=== PATIENT | female | born 1985 | race Caucasian/White ===

== ENCOUNTER 2016-09-02 08:49 | Inpatient (IN) | payer OTHER ==
[2016-09-02] VITALS (7 sets, daily range): BP systolic 98–116; BP diastolic 55–65
[~2016-09-02] VITALS: Ht 160 cm; Wt 69.9 kg
[~2016-09-02 08:49] MED LIST: FEOSOL325 MG PO; IBUPROFEN800 MG PO; PERCOCET 5/31 TABLET PO; PRENATAL TABLE1 EAC3 PO; VITAMIN B-12
[2016-09-02] MEDS ORDERED: PERCOCET 5/31 TABLET PO (13:13)
[2016-09-02] MEDS ORDERED: IBUPROFEN800 MG PO (13:13)
[2016-09-03 00:07] VITALS: BP 107/56
[2016-09-03 03:04] VITALS: BP 100/57
[2016-09-03 06:55] LABS: EOSINOPHIL (%) 0.6 % (0-5); EOSINOPHIL COUNT 0.1 K/uL (0-0.3); HEMATOCRIT 29.7 % (36.0-46.0); IMMATURE GRANULOCYTE (%) 0.1 % (0.0-0.7); MCH 26.9 PG (29.0-34.0); MCHC 31.6 G/DL (30.0-36.0); MCV 84.9 FL (83-99); MEAN PLAT.VOLUME 10.2 uM^3 (9.5-12.4); MONOCYTE (%) 9.6 % (3-12); MONOCYTE COUNT 0.8 K/uL (0-0.8); NEUTROPHIL (%) 77.6 % (45-76); NEUTROPHIL COUNT 6.6 K/uL (1.8-6.4); RBC DIS.WIDTH-CV 13.4 % (11.8-14.6); RBC DIS.WIDTH-SD 40.6 % (39-53); WHITE BLOOD COUNT 8.6 K/uL (4.1-10.2)
[2016-09-03 07:01] LABS: PLATELET COUNT 189 K/uL (156-360)
[2016-09-03 08:14] VITALS: BP 108/56
[2016-09-03 08:21] LABS: PLAT.SUFFICIENCY ADEQUATE; USER ID CL
[2016-09-03 11:11] VITALS: BP 104/56
[2016-09-03 16:08] VITALS: BP 101/58
[2016-09-03 21:39] VITALS: BP 114/62
[2016-09-04 07:50] VITALS: BP 109/57
[2016-09-04 15:52] VITALS: BP 118/66
[2016-09-04 23:25] VITALS: BP 110/55
[2016-09-05 08:45] VITALS: BP 114/60
[2016-09-05 14:58] VITALS: BP 110/56
[2016-09-06 00:02] VITALS: BP 97/56
[2016-09-06 08:15] VITALS: BP 117/69
== END 2016-09-06 14:36 | disposition home or self-care (01) | DRG 766 ==
LOC: 2WEST 08:49 → 2SOUTH 09:35 → 2WEST 09-04 09:45
PROVIDERS: Obstetrics & Gynecology
PROC: 10D00Z1 Extraction of Products of Conception, Low, Open Approach (ICD-10-PCS; principal; 2016-09-02)
DX: O36.5930 Maternal care for other known or suspected poor fetal growth, third trimester, not applicable or unspecified (principal); N85.8 Other specified noninflammatory disorders of uterus; O32.1XX0 Maternal care for breech presentation, not applicable or unspecified; Z3A.37 37 weeks gestation of pregnancy; Z37.0 Single live birth; O34.211 Maternal care for low transverse scar from previous cesarean delivery; O34.593 Maternal care for other abnormalities of gravid uterus, third trimester
CPT/HCPCS: 36415; 85025; 86850; 86900; 86901; J1580; J2274; J2405; J3010; J7050; J7120